=== PATIENT | male | born 1990 | race African-American/Black ===

== ENCOUNTER 2016-12-26 08:55 | Emergency (ER) | payer MEDICAID, OTHER ==
[~2016-12-26] VITALS: Ht 182.9 cm; Wt 87.0 kg
[2016-12-26 12:00] VITALS: BP 128/78
== END 2016-12-26 13:20 | disposition home or self-care (01) ==
LOC: ER 09:45
DX: Z48.02 Encounter for removal of sutures (principal)
CPT/HCPCS: 99283; X7700; Z7610

== ENCOUNTER 2018-01-06 19:43 | Emergency (ER) | payer MEDICAID, OTHER ==
[~2018-01-06] VITALS: Ht 185.4 cm; Wt 80.7 kg
[2018-01-07] MEDS: IBUPROFEN 600MG TABLET PO ONE ×2 (00:26→00:31)
[2018-01-07 03:00] VITALS: BP 128/74
== END 2018-01-07 03:05 | disposition home or self-care (01) ==
LOC: ER 21:47
DX: M79.632 Pain in left forearm (principal); Y00.XXXA Assault by blunt object, initial encounter
CPT/HCPCS: 29125; 73090; 99284; A4565

== ENCOUNTER 2018-01-07 15:04 | Emergency (ER) | payer MEDICAID | END 2018-01-07 16:50 | disposition left against medical advice (07) | LOC: ER 16:44 | DX: M79.603 Pain in arm, unspecified (principal); Z53.21 Procedure and treatment not carried out due to patient leaving prior to being seen by health care provider ==